=== PATIENT | male | born 1950 | race Caucasian/White ===

== ENCOUNTER → 2017-02-25 | Outpatient (CLI) | payer OTHER, BC ==
[~2017-02-25] VITALS: Ht 172.7 cm; Wt 81.6 kg
[~2017-02-25] MED LIST: ASA5UEC OR; CENTRUM TABLET1 TAB OR; FUROSEMIDE 40 M40 M1 OR; KEFLEX500 MG PO; KLOR-CON 1010 MEQ PO; LEVOTHYROXINE PO; OMEPRAZOLE20 M1 PO
--- NOTE | ~2017-02-25 | P ---
[facility] [place] [address] PROCEDURE REPORT Name: DAVALOSLISANDRA Vanessa Room #: REG [facility]#: [id number] Admission: 02/25/17 Attend Phys: Carl Magallanes MD Discharge: Date of : 48 Report #: [id number] THIS REPORT FOR: //name// CC: Rodrick Magallanes BRIEF HISTORY: The patient is a 67-year-old male with history of Reyes esophagus. He presents today due to intermittent solid food dysphagia for food and large pills. PREOPERATIVE DIAGNOSES: Reyes's esophagus and dysphagia. POSTOPERATIVE DIAGNOSES: 1. Reyes esophagus. 2. Qnyde-lk-gapvrqvg hiatus hernia. 3. Erythematous antral gastritis. 4. Moderate Schatzki ring. MEDICATIONS: Deep sedation with propofol per anesthesia. SPECIMEN: Biopsies of Reyes esophagus. ESTIMATED BLOOD LOSS: 3 mL. PROCEDURE: EGD with biopsy. FINDINGS: Prior to propofol sedation, the procedure of upper endoscopy and dilation was reviewed with the patient as well as potential risks, benefits, and complications. He indicates he understands and desires to proceed. With the patient in left lateral decubitus position, Last 2 Lefti video endoscope was inserted in the cervical esophagus under direct vision without difficulty. Examination of this organ through its entire length revealed normal esophageal mucosa down in the distal esophagus. In the distal esophagus, the squamocolumnar junction was somewhat irregular. He has a known history of Reyes's and the segment Reyes is no more than 2-cm in length. It was flat. There were a couple of islands, no ulcers were seen. Multiple biopsies were obtained. The scope was further advanced and the patient was noted to have a moderate Schatzki ring. In addition, an about 3-cm sliding type hiatus hernia was seen as well. The scope was advanced fully into the stomach, which was examined on end view as well as retroflexed views. There was erythema in the antrum, previous biopsies for H. pylori were negative. Those were not repeated today. No ulcers were seen. Upon retroflexion, the hiatus hernia was seen. The GE junction was seen. No other lesions were seen, specifically no mass lesions were seen. The pylorus, duodenal bulb and postbulbar sweep were all inspected and noted to be within normal limits. At that point, the scope was [address] [address] PROCEDURE REPORT Name: LISANDRA DAVALOS Room #: REG [facility]#: [id number] Admission: 02/25/17 Attend Phys: Carl Magallanes MD Discharge: Date of : 48 Report #: [id number] slowly withdrawn and careful circumferential views confirmed the above findings. The patient tolerated the procedure well. Subsequently, he was dilated with passage of a 52-Pashto Sullivan dilator. There was no resistance. CONDITION OF PATIENT UPON DISCHARGE: Following procedure, the patient drowsy and prepared for colonoscopy. INSTRUCTIONS TO THE PATIENT AND FAMILY AT THE TIME OF DISCHARGE: We will follow up on the biopsies of Reyes. There is no dysplasia, he should return in 3 years. He is actually a little bit early due to dysphagia, so follow up biopsy should be 3 years from this point if no dysplasia. However, if dysplasia is present, he may require a further intervention or evaluation. He should return as needed for dilation due to symptoms of dysphagia. He should continue his omeprazole 20 mg daily. We will proceed with colonoscopy at this time. <ELECTRONICALLY SIGNED> By: Carl Magallanes MD 02/25/17 1948 0801 1214 Carl Magallanes MD /nt
--- NOTE | ~2017-02-25 | P ---
[facility] [place] [address] PROCEDURE REPORT Name: ILSANDRA DAVALOS Vanessa Room #: REG [facility]#: [id number] Admission: 02/25/17 Attend Phys: Carl Magallanes MD Discharge: Date of : 48 Report #: [id number] THIS REPORT FOR: //name// CC: Rodrick Magallanes BRIEF HISTORY: The patient is a 67-year-old male with a history of colitis diagnosed in 1967. PREOPERATIVE DIAGNOSIS: History of colon adenoma. POSTOPERATIVE DIAGNOSES: 1. A 12-mm sessile polyp, anal verge. 2. Moderate sigmoid diverticulosis coli with few scattered proximal colon diverticula. 3. History of colitis with normal-appearing colonic mucosa. 4. Anal tags. MEDICATIONS: Deep sedation with propofol per Anesthesia. SPECIMENS: 1. Random biopsies of cecum and ascending colon. 2. Random biopsies of transverse colon. 3. Random biopsies of descending colon. 4. Random biopsies of sigmoid colon. 5. Random biopsies of rectum. 6. Polyp, rectum. ESTIMATED BLOOD LOSS: 3 mL. PROCEDURE: Colonoscopy to cecum and terminal ileum with snare polypectomy and biopsy. FINDINGS: Prior to propofol sedation, procedure of colonoscopy was discussed with the patient as well as potential risks and its complications. He indicates he understands and desires to proceed. DESCRIPTION OF PROCEDURE: With the patient in the left lateral decubitus position, digital examination was completed, which revealed no abnormalities. Subsequently, the jellyfish video colonoscope was introduced into the rectum and advanced under direct vision to the cecum. Done with minimal difficulty. The cecum was identified by the ileocecal valve and the appendiceal orifice. I was able to identify the ileocecal valve and cross the ileocecal valve. The distal segment of terminal ileum was normal. Specifically, there was no evidence of inflammatory bowel disease. At that point, the scope was slowly withdrawn and careful circumferential views were obtained, including retroflexing in the [facility] [address] [place] [address] PROCEDURE REPORT Name: LISANDRA DAVALOS Room #: REG [facility]#: [id number] Admission: 02/25/17 Attend Phys: Carl Magallanes MD Discharge: Date of : 48 Report #: [id number] ascending colon. Upon slow withdrawal of the scope, the prep was noted to be excellent. The mucosa was within normal limits. Normal vascular pattern. Normal light reflex. As we withdrew the scope, he was noted to have normal mucosa throughout. I did not see evidence of inflammatory disease. Also, I did not see evidence of scarring. Multiple random biopsies were obtained, as noted above. As we withdrew the scope, a few scattered diverticula were seen in the proximal colon. However, he was noted to have moderately severe diverticular disease of the sigmoid colon. Again, no mucosal abnormalities were seen until we withdrew the scope in the rectum. The rectum appeared normal until upon retroflexion. About the 12-mm sessile polyp was seen just above the anal verge. In addition, a few scattered anal tags were seen as well. We removed the polyp in a piecemeal fashion with a cold snare. Total polypectomy was completed. Scope was withdrawn. The patient tolerated the procedure well. CONDITION OF THE PATIENT UPON DISCHARGE: Following the procedure, the patient drowsy and will be discharged to home when fully ambulatory. INSTRUCTIONS TO THE PATIENT AND FAMILY AT THE TIME OF DISCHARGE: We will follow up on the path of the polyp. However, in view of his history and finding of polyps today, I would suggest return in 3 years. As far as his colitis, I do not see evidence of inflammatory disease. I think a 3-year interval or more would be probably reasonable for this patient given his history. He will return to the care of Dr. Rodrick Ta and return to see me as needed. In addition, the patient asked for our report on his prostate. Digital rectal examination revealed a normal prostate. Last colonoscopy was 3 years ago. Withdrawal time from the cecum was 21 minutes and 22 seconds. <ELECTRONICALLY SIGNED> By: Carl Magallanes MD 02/25/17 1948 0838 1203 Carl Magallanes MD /nt
--- NOTE | ~2017-02-25 | S ---
[facility] [place] [address] SURGICAL PATH RPT PROCEDURE Name: LISANDRA WORKMAN Room #: REG [facility].#: [id number] Admission: 02/25/17 Date of : 48 Discharge: Report #: [id number] Path Case #: [id number] PATHOLOGY REPORT COLLECTION DATE: 02/25/2017 RECEIVED DATE: 02/25/2017 SUBMITTING PHYS: Dr. Carl Magallanes OTHER PHYS: Dr. Rodrick Ta SPECIMEN(S) RECEIVED: A.GE junction bx B.Cecum and ascending colon bx C.Transverse colon bx D.Descending colon bx E.Sigmoid colon bx F.Rectum bx G.Polyp at rectum * * * * * * * * * * * * FINAL DIAGNOSIS: A. GE junction, biopsy: - Squamocolumnar junctional mucosa, chronically inflamed. - Negative for intestinal metaplasia. B. Colon, cecum and ascending, biopsy: - Unremarkable colonic mucosa. C. Colon, transverse, biopsy: - Unremarkable colonic mucosa. D. Colon, descending, biopsy: - Unremarkable colonic mucosa. E. Colon, sigmoid, biopsy: - Unremarkable colonic mucosa. F. Rectum, biopsy: - Focal architectural distortion, suggestive of chronic colitis. - No active colitis present. G. Rectum, "polyp", biopsy: - Tubulovillous adenoma. - Negative for high-grade dysplasia. PATHOLOGIST: Mehran Zurita M.D. REPORT ELECTRONICALLY SIGNED BY: Mehran Zurita M.D. DATE/TIME: 02/26/2017 14:08 * * * * * * * * * * * * GROSS PATHOLOGY: A. The specimen is received in formalin, labeled "Lisandra Workman and biopsy of GE junction", are three irregular fragment of bernard soft [facility] [address] [place] [address] SURGICAL PATH RPT PROCEDURE Name: WORKMANLISANDRA Room #: REG [facility].#: [id number] Admission: 02/25/17 Date of : 48 Discharge: Report #: [id number] Path Case #: [id number] tissue 0.2, 0.3 and 0.4 cm in greatest dimension. Entirely submitted in A1. B. The specimen is received in formalin, labeled "Lisandra Workman and biopsy of cecum and ascending colon", are multiple fragment of bernard soft tissue the aggregate measures 0.7 x 0.5 x 0.2 cm. Entirely submitted in B1. C. The specimen is received in formalin, labeled "Lisandra Workman and biopsy of transverse colon", are multiple irregular fragment of bernard soft tissue 0.7 x 0.5 x 0.2 cm in aggregate. Entirely submitted in C1. D. The specimen is received in formalin, labeled "Lisandra Workman and biopsy of descending colon", are multiple irregular fragments of bernard soft tissue 0.6 x 0.5 x 0.2 cm in aggregate. Entirely submitted in D1. E. The specimen is received in formalin, labeled "Lisandra Workman and biopsy of sigmoid colon", are multiple irregular fragment of bernard soft tissue 0.6 x 0.4 x 0.2 cm in aggregate. Entirely submitted in E1. F. The specimen is received in formalin, labeled "Lisandra Workman and biopsy of rectum", are multiple fragments of bernard soft tissue 0.8 x 0.4 x 0.2 cm in aggregate. Entirely submitted in F1. G. The specimen is received in formalin, labeled "Lisandra Workman and polyp at rectum", are multiple polypoid fragment of bernard soft tissue measuring up to 0.8 cm in greatest dimension and measuring 1.2 x 0.8 x 0.2 cm in aggregate. Entirely submitted in two cassettes. A1 largest polypoid fragment bisected A2 remaining fragments. (SWS; 02/25/2017) CLINICAL HISTORY: History Reyes's, polyps, ulcerative colitis Small hiatus hernia, Reyes's, moderate Schatzki's ring, diverticulosis, rectal polyp A follow-up Reyes's B rule out dysphagia INITIAL CPT CODE(S): A; 89028 B; 33869 C; 27436 D; 39310 E; 90227 F; 39964 G; 91822 Professional services performed by [facility] [address], [place] [address] Technical services performed by [facility] at [address] [place] [address] [address] [place] [address] SURGICAL PATH RPT PROCEDURE Name: LISANDRA WORKMAN Room #: REG [facility]#: [id number] Admission: 02/25/17 Date of : 48 Discharge: Report #: [id number] Path Case #: [id number] [address]. [facility] [address] [place] [address] PHONE: [phone] DIRECTOR: Isaias Snowden M.D. * * * END OF REPORT * * *
== END ==
LOC: GI 06:32
DX: Z09 Encounter for follow-up examination after completed treatment for conditions other than malignant neoplasm (principal); D12.8 Benign neoplasm of rectum; K57.30 Diverticulosis of large intestine without perforation or abscess without bleeding; K64.4 Residual hemorrhoidal skin tags; R13.19 Other dysphagia; K22.70 Barrett's esophagus without dysplasia; K44.9 Diaphragmatic hernia without obstruction or gangrene; K21.9 Gastro-esophageal reflux disease without esophagitis; K29.50 Unspecified chronic gastritis without bleeding; K22.2 Esophageal obstruction; F17.210 Nicotine dependence, cigarettes, uncomplicated; Z87.19 Personal history of other diseases of the digestive system; Z86.2 Personal history of diseases of the blood and blood-forming organs and certain disorders involving the immune mechanism; Z98.890 Other specified postprocedural states; Z85.828 Personal history of other malignant neoplasm of skin; Z85.850 Personal history of malignant neoplasm of thyroid; Z79.899 Other long term (current) drug therapy
CPT/HCPCS: 62110; 62900

== ENCOUNTER → 2020-01-25 | Outpatient (CLI) | payer OTHER, BC ==
[~2020-01-25] VITALS: Ht 172.7 cm; Wt 77.6 kg
[~2020-01-25] MED LIST changes: +CALCIUM + VITA1 EACH PO; +FOSAMAX 70 MG T70 MG PO; -FUROSEMIDE 40 M40 M1 OR; +FUROSEMIDE 40 M40 M1 PO; +PROAIR HFA8.5 GM INH; +SYNTHROID175 MCG PO; +WIXELA 250-501 EACH INH; +XARELTO20 MG PO
== END ==
LOC: GI 13:33
PROVIDERS: ATTEND Student in an Organized Health Care Education/Training Program
DX: Z01.812 Encounter for preprocedural laboratory examination (principal); Z20.828 Contact with and (suspected) exposure to other viral communicable diseases

== ENCOUNTER → 2020-01-28 | Outpatient (CLI) | payer OTHER, BC ==
--- NOTE | 2020-02-01 10:53 | P ---
[facility] [place] [address] PROCEDURE REPORT Name: LISANDRA DAVALOS Room #: REG [facility]#: [id number] Admission: 01/28/20 Attend Phys: Carl Magallanes MD Discharge: Date of : 48 Report #: [id number] THIS REPORT FOR: cc: Rodrick Ta MD, Eric K. MD Thesing,Carl Mendez MD ~ CC: Rodrick Magallanes DATE OF SERVICE: 01/28/2020 OUTPATIENT COLONOSCOPY REPORT BRIEF HISTORY: The patient is a 69-year-old male with history of colon polyps. Also, questionable history of Reyes's esophagus and recurrent solid food dysphagia. He has recently had rectal bleeding and has been told he is anemic. I did not have any lab studies regarding his anemia at this time. In addition, the patient has a history of chronic colitis. PREOPERATIVE DIAGNOSES: History of colon polyps including a rectal tubulovillous adenoma, anemia and rectal bleeding. POSTOPERATIVE DIAGNOSES: 1. Sessile polyp anal verge. 2. Moderate left-sided diverticulosis coli with mild right-sided diverticulosis coli. 3. 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 4. Multiple hemorrhoidal tags. MEDICATIONS: Deep sedation with propofol per anesthesia. SPECIMENS: 1. Random biopsies of cecum and ascending colon. 2. Random biopsies of transverse colon. 3. Random biopsies of descending colon. 4. Random biopsies of sigmoid colon. 5. Random biopsies of rectum including mucosa surrounding the rectal polyp. 6. Rectal polyp at the anal verge. MEDICATIONS: Deep sedation with propofol per Anesthesia. ESTIMATED BLOOD LOSS: 5 mL. PROCEDURE: Colonoscopy to cecum and terminal ileum with snare polypectomy, biopsy and argon plasma coagulation of AVM of proximal colon. [facility] [address] [place] [address] PROCEDURE REPORT Name: LISANDRA DAVALOS Room #: [facility] [id number] Admission: 01/28/20 Attend Phys: Carl Magallanes MD Discharge: Date of : 48 Report #: [id number] FINDINGS: Prior to propofol sedation, procedure of colonoscopy discussed with the patient as well as potential risks and its complications. He indicates he understands and desires to proceed. DESCRIPTION OF PROCEDURE: With the patient in left lateral decubitus position, digital examination was completed, which revealed no abnormalities. Subsequently, the Olympus video colonoscope was introduced into the rectum, advanced under direct vision to the cecum, done with minimal difficulty. The cecum was identified by the ileocecal valve and the appendiceal orifice. I was able to visualize the distal segment of the terminal ileum, which was inspected and noted to be unremarkable. There was no evidence of inflammatory disease in the distal terminal ileum. At that point, the scope was slowly withdrawn and careful circumferential views were obtained. First of all, the patient has a history of colitis. The mucosa throughout the exam was normal. There was no evidence of inflammatory bowel disease. However, in view of his history of colitis, multiple random biopsies were obtained as noted. In addition, the patient recently was found to have anemia as well as rectal bleeding. In the very proximal ascending colon a 5-6 mm nonbleeding AVM was seen. This was destroyed with argon plasma coagulation. Again, as we withdrew the scope, no additional mucosal abnormalities were seen. He was noted to have scattered diverticula in the proximal colon without endoscopic evidence of diverticulitis. In addition, there was noted to be moderate diverticular disease of sigmoid colon without endoscopic evidence of diverticulitis. The scope was withdrawn in the rectum and initially no abnormalities were seen. However, upon retroflexion, a semi flat polyp was seen just at the anal verge. It is noted the patient had a tubulovillous adenoma removed from the anal verge area 3 years ago. He had a smooth and benign appearance. It was probably 15 mm in length and about 8 mm in width. We used hot snare polypectomy technique. It was removed in a piecemeal fashion. We tried as best as we could to remove the mucosa at the edges of the polypectomy site to ensure complete polypectomy. After the polyp was removed, there was noted to be good hemostasis and no obvious residual polyp tissue was seen. We then treated the edges with argon plasma coagulation. In addition, the patient was noted to have anal tags. These were palpable on digital rectal exam. We also obtained random biopsies of the rectum and biopsies right alongside the polyp and normal appearing mucosa were included in the biopsy site given his history of colitis. Scope was withdrawn. The patient tolerated the procedure well. CONDITION OF THE PATIENT UPON DISCHARGE: Following the procedure, the patient was drowsy, arousable and conversant and will be discharged home when fully ambulatory. INSTRUCTIONS TO THE PATIENT AND FAMILY AT THE TIME OF DISCHARGE: The patient with findings as noted above. As far as his rectal bleeding, he has been on Xarelto and the very likely the polyp at the anal verge was the source of [facility] [address] [place] [address] PROCEDURE REPORT Name: LISANDRA DAVALOS #: REG [facility]#: [id number] Admission: 01/28/20 Attend Phys: Carl Magallanes MD Discharge: Date of : 48 Report #: [id number] bleeding. He did have an AVM, which may also be contributing to anemia. We will follow up on biopsies and make further recommendations. If there continues to be further evidence of anemia, small bowel capsule study would be a consideration at a later date. The patient has done well with regards to his colitis and no specific medicines will follow up on biopsies. We will make further recommendations. At this point in time, I would have him return in 6 months for flexible sigmoidoscopy to examine the polypectomy site. Given the fact he has had recurrent polyps in this area. In addition, given the fact he had a tubulovillous adenoma large polyp once again, we will have him return in 3 years for a total colonoscopy. <ELECTRONICALLY SIGNED> By: Carl Magallanes MD 02/01/20 1053 0935 1219 Carl Magallanes MD /nt
--- NOTE | 2020-02-01 10:53 | P ---
[facility] [place] [address] PROCEDURE REPORT Name: LISANDRA DAVALOS Room #: REG [facility]#: [id number] Admission: 01/28/20 Attend Phys: Carl Magallanes MD Discharge: Date of : 48 Report #: [id number] THIS REPORT FOR: cc: Rodrick Ta MD, Eric K. MD Thesing,Carl Mendez MD ~ CC: Rodrick Magallanes DATE OF SERVICE: 01/28/2020 EGD WITH BIOPSY AND SULLIVAN DILATION BRIEF HISTORY: The patient is a 69-year-old male with a questionable history of Reyes's esophagus. One set of endoscopic biopsies were consistent with Reyes at the GE junction. The second set did not reveal Reyes's esophagus. He continues for followup and further evaluation. He also has intermittent solid food dysphagia, which is recurrent. PREOPERATIVE DIAGNOSES: Questionable history of Reyes's esophagus and recurrent dysphagia. POSTOPERATIVE DIAGNOSES: 1. Question short segment Reyes's esophagus. 2. A 2 cm sliding type hiatus hernia. 3. Diminutive polyp, hiatus hernia. 4. Schatzki ring. MEDICATIONS: Deep sedation with propofol per anesthesia. SPECIMENS: 1. Biopsy of distal esophagus, rule out Reyes. 2. Polyp, hiatus hernia. ESTIMATED BLOOD LOSS: 3 mL. PROCEDURE: EGD with biopsy and Sullivan dilation. FINDINGS: Prior to propofol sedation, procedure of upper endoscopy and dilation was discussed with the patient as well as potential risks and its complications. He indicates he understands and desires to proceed. DESCRIPTION OF PROCEDURE: With the patient in left lateral decubitus position, the Olympus video endoscope was inserted in the cervical esophagus under direct vision without difficulty. Examination of this organ through its entire length [facility] [address] [place] [address] PROCEDURE REPORT Name: LISANDRA DAVALOS Room #: [facility] [id number] Admission: 01/28/20 Attend Phys: Carl Magallanes MD Discharge: Date of : 48 Report #: [id number] revealed normal esophageal mucosa down to the distal esophagus. In the distal esophagus just proximal to the squamocolumnar junction, there were several punctate islands of possible Reyes mucosa. They were all flat. In addition, he is noted to have about a 2 cm sliding type hiatus hernia. However, using white light and narrow banded imaging, there may be a less than 2 cm short segment of Reyes's mucosa with an irregular vascularity noted. The mucosa was flat without nodules or ulcerations. Multiple biopsies were obtained of this area as well as the islands of possible Reyes mucosa in distal esophagus. In addition, the hiatus hernia within a centimeter of the squamocolumnar junction, there was a diminutive polyp, which had an adenomatous appearance. It was removed by biopsy. No other abnormalities were seen. Scope was advanced in the stomach, was examined on end view as well as retroflexed views. He had normal appearing gastric mucosa on end view as well as retroflexed views. Upon retroflexion, only the hiatus hernia was seen. No other abnormalities were seen. The pylorus, duodenal bulb and postbulbar duodenal sweep were inspected and noted to be unremarkable. At that point, the scope was slowly withdrawn and careful circumferential views confirmed the above findings. The patient tolerated the procedure well. In addition, following the withdrawal of the scope, he was dilated with passage of 52-Setswana Sullivan dilator without difficulty. CONDITION OF THE PATIENT UPON DISCHARGE: Following procedure, the patient drowsy and prepared for colonoscopy. INSTRUCTIONS TO THE PATIENT AND FAMILY AT THE TIME OF DISCHARGE: The patient with findings as noted above. We will follow up on the pathology and make further recommendations. If he does have Reyes mucosa, I suggest return in 3 years for followup examination. He should continue his PPI daily as needed to control reflux symptoms. If there is no Reyes is present, he may not need any further evaluation. He is to return as needed for dilation due to symptoms of dysphagia. In addition, the patient is noted to be anemic and has had rectal bleeding. We will proceed with colonoscopy. No bleeding lesions were seen on upper endoscopic examination. <ELECTRONICALLY SIGNED> By: Carl Magallanes MD 02/01/20 1053 0847 0918 Carl Magallanes MD /nt
--- NOTE | 2020-02-01 18:06 | PATH ---
[facility] [address] [place] [address] PATHOLOGY RPT PROCEDURE Name: SUSANNAHLISANDRA Mendez Room #: REG [place].#: [id number] Admission: 01/28/20 Date of : 48 Discharge: Report #: [id number] Path Case #: [id number] [facility] Accession Number: [id number] . 01 Material submitted: . PART A: esophagus - BX OF DISTAL ESOPHAGUS. Modifiers: distal PART B: gastrointestinal site - POLYP AT HIATUS HERNIA PART C: colon - RANDOM BX OF CECUM AND ASCENDING COLON. Modifiers: ascending PART D: colon - RANDOM BX OF TRANSVERSE COLON. Modifiers: transverse PART E: colon - RANDOM BX OF DESCENDING COLON. Modifiers: descending PART F: sigmoid colon - RANDOM BX OF SIGMOID COLON PART G: rectum - RANDOM BX OF RECTUM COLON PART H: anus - RECTAL POLYP AT ANAL VERGE . 01 Clinical history: . A. 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 R/O DYSPLAGIA D-G. HX OF CHRONIC COLITIS, R/O DYSPLASIA . 02 Diagnosis: A. Gastroesophageal mucosa, distal esophagus, history of Reyes's, endoscopic biopsy: - Specialized columnar epithelium (gastric cardia-type mucosa) with intestinal metaplasia, consistent with Reyes's metaplasia. - Negative for dysplasia. - Focal squamous mucosa with mild esophagitis. . B. Polyp, at hiatus hernia, endoscopic biopsy: - Polypoid mucosa showing reactive hyperplastic changes as well as mild gastropathy. - Negative for intestinal metaplasia or atrophy. - Helicobacter pylori immunohistochemical stain ordered on block B1, to be reported as an addendum. . C. Large intestinal mucosa, random cecum and ascending colon, endoscopic biopsy: - Mild active colitis, see comment. - Negative for dysplasia. . D. Large intestinal mucosa, transverse colon, endoscopic biopsy: - Mild active colitis, see comment. - Negative for dysplasia. . E. Large intestinal mucosa, descending colon, endoscopic biopsy: - Mild active colitis, see comment. - Negative for dysplasia. . [address] [address] PATHOLOGY RPT PROCEDURE Name: LISANDRA WORKMAN Room #: REG [facility].#: [id number] Admission: 01/28/20 Date of : 48 Discharge: Report #: [id number] Path Case #: [id number] F. Large intestinal mucosa, sigmoid colon, endoscopic biopsy: - Mild focal active colitis, see comment. - Negative for dysplasia. . G. Large intestinal mucosa, rectum colon, endoscopic biopsy: - Mild focal active colitis, see comment. - Negative for dysplasia. . H. 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 . (IUV:supervisor process testing; 01/29/2020) MBR 01/29/2020 1714 Local . 02 Comment: C-G: Examination shows mild active colitis within the cecum, ascending colon, transverse colon, as well as descending colon biopsy tissues. The sigmoid colon and rectum show mild focal active cryptitis. The lamina propria is markedly expanded by lymphocytes as well as plasma cells. The intensity of the inflammation seems to decrease from the cecum to the rectum. The provided history of chronic colitis is noted. Findings are suggestive of active colitis, most likely an inflammatory bowel disease (Crohn's disease). There are no granulomata, viral inclusions or parasitic organisms present. There is no evidence of dysplasia within any of the biopsy tissues examined. Please correlate clinically. . H: Dr. Jodi Boland has seen this part of the case and concurs with my interpretation. . (IUV:supervisor process testing; 01/29/2020) . 02 Addendum: . This addendum is issued subsequent to reviewing a properly controlled Helicobacter pylori immunohistochemical stain performed on block B1. It shows no Helicobacter pylori organisms present. The originally rendered interpretation remains unchanged. (IUV:supervisor process testing; 02/01/2020) . Professional services performed by [facility] at [facility], [address] [place] [address] [address], [place] [address]. Technical services performed by [facility] at [address] [place] [address], [address], [place] [address]. QMS/02/01/2020 Addendum Electronically Signed by Carli Cohen MD, Pathologist . 02 Electronically signed: . Carli Cohen MD, Pathologist NPI- [id number] [facility] [address] [place] [address] PATHOLOGY RPT PROCEDURE Name: LISANDRA WORKMAN Room #: REG [facility]#: [id number] Admission: 01/28/20 Date of : 48 Discharge: Report #: [id number] Path Case #: [id number] . 01 Gross description: . A. Received in formalin labeled "Lisandra Workman, BX of distal esophagus prior history of Reyes's rule out Reyes's" is a 0.8 x 0.6 x 0.1 cm aggregate of bernard-brown soft tissue fragments. The specimen is submitted entirely in A1. . B. Received in formalin labeled "Lisandra Workman, polyp at hiatus hernia" is a 0.8 x 0.3 x 0.1 cm aggregate of bernard-brown soft tissue fragments. The specimen is submitted entirely in B1. . C. Received in formalin labeled "Lisandra Workman, history of chronic colitis random BX cecum and ascending rule out dysplasia" is a 1.2 x 0.7 x 0.1 cm aggregate of bernard-brown soft tissue fragments. The specimen is submitted entirely in C1. . D. Received in formalin labeled "Lisandra Workman, random BX of transverse rule out dysplasia" is a 1.0 x 0.6 x 0.1 cm aggregate of bernard-brown soft tissue fragments. The specimen is submitted entirely in D1. . E. Received in formalin labeled "Lisandra Workman, random BX of descending rule out dysplasia" is a 1.8 x 0.3 x 0.1 cm aggregate of bernard-brown soft tissue fragments. The specimen is submitted entirely in E1. . F. Received in formalin labeled "Lisandra Workman, random BX of sigmoid colon rule out dysplasia" is a 0.8 x 0.6 x 0.1 cm aggregate of bernard-brown soft tissue fragments. The specimen is submitted entirely in F1. . G. Received in formalin labeled "Lisandra Workman, random BX of rectum rule out dysplasia" is a 1.0 x 0.5 x 0.1 cm aggregate of bernard-brown soft tissue fragments. The specimen is submitted entirely in G1. . H. Received in formalin labeled "Lisandra Workman, rectal polyp at anal verge" is a 2.3 x 2.1 x 0.8 cm aggregate of bernard-brown nodular soft tissue fragments. The apparent resection margins are inked black. The specimen is serially sectioned and submitted entirely in cassettes H1-H2. ([facility]; 01/28/2020[facility] 01/28/2020 1942 Local . 02 Pathologist provided ICD-10: K22.70, K31.9, K52.9, D12.8 . 02 CPT . 168697, 936748, 347170, 362231, 080350, 255418, 504615, 150593, [id number] Specimen Comment: A courtesy copy of this report has been sent to [phone] Specimen Comment: [id number] Specimen Comment: Report sent to / DR REYES [address] [address] PATHOLOGY RPT PROCEDURE Name: LISANDRA WORKMAN Vanessa Room #: REG [facility] Andrew#: [id number] Admission: 01/28/20 Date of : 48 Discharge: Report #: [id number] Path Case #: [id number] Performed at: 01 [facility] James Kate [address], [place], [place] [id number] MD Arik Frias MD Phone: [phone] Performed at: [address] [id number] MD Carli Cohen MD Phone: [phone]
== END | disposition home or self-care (01) ==
LOC: GI 06:58
PROVIDERS: ATTEND Specialist
DX: K62.5 Hemorrhage of anus and rectum (principal); D64.9 Anemia, unspecified; D12.8 Benign neoplasm of rectum; K55.20 Angiodysplasia of colon without hemorrhage; K57.30 Diverticulosis of large intestine without perforation or abscess without bleeding; K64.4 Residual hemorrhoidal skin tags; K52.9 Noninfective gastroenteritis and colitis, unspecified; K31.9 Disease of stomach and duodenum, unspecified; K31.7 Polyp of stomach and duodenum; K22.70 Barrett's esophagus without dysplasia; K20.9 Esophagitis, unspecified; R13.12 Dysphagia, oropharyngeal phase; K22.2 Esophageal obstruction; K44.9 Diaphragmatic hernia without obstruction or gangrene; Z86.010 Personal history of colon polyps; Z98.890 Other specified postprocedural states
CPT/HCPCS: 62110; 62900